=== PATIENT | female | born 1990 | race American Indian/Alaskan Native ===

== ENCOUNTER 2018-12-09 17:24 | Emergency (ER) | payer BC, OTHER ==
[2018-12-09] MEDS ORDERED: ONDANSETRON 4 MG ODT TAB PO ONE (22:56)
[2018-12-09] MEDS ORDERED: ACETAMINOPHEN 500 MG TAB PO ONE (22:56)
[2018-12-09] MEDS ORDERED: IBUPROFEN 600 MG TAB PO ONE (22:56)
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
[2018-12-10 01:14] VITALS: BP 116/74
== END 2018-12-10 01:04 | disposition home or self-care (01) ==
LOC: ED 17:24
DX: S43.401A Unspecified sprain of right shoulder joint, initial encounter (principal); M62.830 Muscle spasm of back; M62.838 Other muscle spasm; R51 Headache; V49.49XA Driver injured in collision with other motor vehicles in traffic accident, initial encounter; Y93.89 Activity, other specified; Y92.410 Unspecified street and highway as the place of occurrence of the external cause; Y99.8 Other external cause status
CPT/HCPCS: 70450; 72100; 72125; Q0162